=== PATIENT | female | born 1990 | race Two or more races ===

== ENCOUNTER 2016-11-27 20:43 | Emergency (ER) | payer OTHER ==
[~2016-11-27] VITALS: Ht 160 cm; Wt 108.9 kg
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
[2016-11-27 20:55] VITALS: BP 134/67
--- NOTE | 2016-11-27 20:55 | NUR ---
URINE COLLECTED. SENT TO LAB
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
== END 2016-11-27 21:44 ==
LOC: ER 20:45
DX: Z00.8 Encounter for other general examination (principal)
CPT/HCPCS: 99283; A4606; Z7610